=== PATIENT | female | born 1975 | race Caucasian/White ===

== ENCOUNTER 2017-08-19 18:14 | Emergency (ER) | payer BC ==
[2017-08-19] MEDS ORDERED: PROMETHAZINE HCL INJ 25 MG/ML VIAL ONE (18:34)
[2017-08-19] MEDS ORDERED: SODIUM CHLORIDE 0.9% 50ML 50 ML ONE (18:35)
[2017-08-19] MEDS: HYDROcodone 7.5MG/APAP 325MG 1 EA TAB PO ONE (18:40)
[2017-08-19] MEDS: PROMETHAZINE HCL INJ 25 MG in SODIUM CHLORIDE 0.9% 50ML 50 ML IVPB ONE (18:45)
[2017-08-19] MEDS: SODIUM CHLORIDE 0.9% 1000ML 1,000 ML IVS ONE (18:46)
[2017-08-19] MEDS: KETOROLAC TROMETHAMINE INJ 30 MG/ML VIAL IV ONE (18:46)
[2017-08-19 18:51] VITALS: O2SAT 96
--- NOTE | 2017-08-19 19:58 | ED.PDOC ---
History of Present Illness - General Chief Complaint: Headache Stated Complaint: migraine Time Seen by Provider: 08/19/17 18:16 Source: patient Exam Limitations: no limitations - History of Present Illness Initial Comments: The patient is a 42-year-old female presenting to the emergency room secondary to recurrence of a migraine headache that started yesterday. The patient has taken her routine medications at home and been unable to get it knocked out. The symptoms that she is having with this migraine is consistent with her previous migraines. She has had on average 6-7 migraines a year since she was an early teenager. She reports that she has had this worked up with neurology and her primary care doctor in the past. She has been on Imitrex in the past. No new symptoms to this headache. She does have phono and photophobia. She does have facial tingling. She does have changes in taste with her tongue. She does have nausea. All of these symptoms she has had before in the past with her previous migraines. Timing/Duration: 24 hours Severity: severe Improving Factors: nothing Worsening Factors: movement Associated Symptoms: headaches, loss of appetite, malaise, nausea/vomiting, weakness Allergies/Adverse Reactions: Allergies NO KNOWN ALLERGY Allergy (Verified 08/19/17 18:26) Home Medications: Ambulatory Orders Naproxen [Naprosyn] 500 mg PO BID PRN #30 tab 02/18/16 tiZANidine [Zanaflex] 4 mg PO TID PRN #30 tab 02/18/16 Tzdavgyaezson-Dtkq-Dhuukgcwis [Fioricet] 1 ea PO Q8H PRN #21 tab 08/19/17 Review of Systems - Review of Systems Constitutional: States: malaise EENTM: States: see HPI Respiratory: States: no symptoms reported Cardiology: States: no symptoms reported Gastrointestinal/Abdominal: States: see HPI Genitourinary: States: no symptoms reported Musculoskeletal: States: no symptoms reported Skin: States: no symptoms reported Neurological: States: see HPI Endocrine: States: no symptoms reported All other Systems: No Change from Baseline Past Medical History (General) - Patient Medical History Hx Seizures: No Hx Stroke: No Hx Dementia: No Hx Asthma: No Hx of COPD: No Hx Cardiac Disorders: No Hx Congestive Heart Failure: No Hx Pacemaker: No Hx Hypertension: No Hx Thyroid Disease: No Hx Diabetes: No Hx Gastroesophageal Reflux: No Hx Renal Disease: No Hx Cancer: No Hx of HIV: No Hx Hepatitis C: No Hx MRSA: No Surgical History: Hysterectomy - Vaccination History Hx Tetanus, Diphtheria Vaccination: No Hx Influenza Vaccination: No Hx Pneumococcal Vaccination: No - Social History Hx Tobacco Use: Yes Hx Alcohol Use: Yes - occasionally Hx Substance Use: No Hx Substance Use Treatment: No Hx Depression: No Family Medical History - Family History Mother Family History: No Known Physical Exam - Physical Exam General Appearance: Alert, Anxious Eye Exam: bilateral normal - the patient prefers the lights off Ears, Nose, Throat: hearing grossly normal, normal ENT inspection Neck: full range of motion, supple, other - no nuchal rigidity or meningeal signs Respiratory: no respiratory distress, no accessory muscle use Cardiovascular/Chest: normal peripheral pulses, no edema Peripheral Pulses: radial,right: 2+, radial,left: 2+ Gastrointestinal/Abdominal: non tender, soft Rectal Exam: deferred Extremity: normal range of motion, normal inspection, no pedal edema, normal capillary refill 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 The patient has received IV fluids, a dose of promethazine, a dose of hydrocodone, a dose of Valium and a dose of Toradol here. The patient is doing better and will be allowed to go home to sleep it off. She needs to keep herself well-hydrated. She will be written for Fioricet to take at the onset of any future migraine headache. She also needs to take a dose of an anti-inflammatory such as ibuprofen or Motrin or Aleve along with it and drink fluids with caffeine at the onset as well. She needs to follow up with her primary care doctor later this week or early next week. ER warnings were given. Departure - Departure Clinical Impression: Migraine Qualifiers: Migraine type: unspecified Status migrainosus presence: without status migrainosus Intractability: not intractable Qualified Code(s): G43.909 - Migraine, unspecified, not intractable, without status migrainosus Disposition: Discharge to Home or Self Care Condition: Fair Departure Forms: ED Discharge - Pt. Copy, Patient Portal Self Enrollment Diet: regular diet Activity: increase activity as tolerated Prescriptions: Fjkrjxebvftqe-Lwhi-Gxrubzvkmd [Fioricet] 1 ea PO Q8H PRN #21 tab PRN Reason: Pain Home Medications: Ambulatory Orders Naproxen [Naprosyn] 500 mg PO BID PRN #30 tab 02/18/16 tiZANidine [Zanaflex] 4 mg PO TID PRN #30 tab 02/18/16 Ejgpkdtmxzttz-Eehn-Pgxvmbzdyt [Fioricet] 1 ea PO Q8H PRN #21 tab 08/19/17 Additional Instructions: the patient's a 42-year-old female presenting with a migraine headache this been present for more than 24 hours. The patient has received IV fluids, a dose of promethazine, a dose of hydrocodone, a dose of Valium and a dose of Toradol here. The patient is doing better and will be allowed to go home to sleep it off. She needs to keep herself well-hydrated. She will be written for Fioricet to take at the onset of any future migraine headache. She also needs to take a dose of an anti-inflammatory such as ibuprofen or Motrin or Aleve along with it and drink fluids with caffeine at the onset as well. She needs to follow up with her primary care doctor later this week or early next week. ER warnings were given.
[2017-08-19] MEDS: diazePAM 2 MG TAB PO ONE (20:06)
[2017-08-19 20:26] VITALS: BP 134/79; TEMP 97.9
== END 2017-08-19 20:26 | disposition home or self-care (01) ==
LOC: ER 18:14
DX: G43.909 Migraine, unspecified, not intractable, without status migrainosus (principal)
CPT/HCPCS: A4216; J1885; J2550; J7030

== ENCOUNTER → 2017-08-25 | Outpatient (CLI) | payer BC ==
--- NOTE | 2017-08-25 11:10 | MRI ---
EXAM DESCRIPTION: Brain w/wo Contrast: Magnetic Resonance Imaging. CLINICAL HISTORY: HEADACHE COMPARISON: None. TECHNIQUE: Multiplanar, high-field MRI, multiple conventional sequences, without and with gadolinium IV contrast. No adverse reactions. Multiple axial diffusion sequences. FINDINGS: Normal FLAIR and T2-weighted signal in the periventricular white matter and batista-white matter junctions of the cerebral hemispheres. . Normal signal in the bilateral basal ganglia. No hemorrhage, no cerebral edema, no mass-effect. Normal contrast enhancement. Normal signal in the brainstem and cerebellar hemispheres. No hemorrhage, no cerebral edema, no mass-effect. Normal contrast enhancement. Concordance of the diffusion and non-diffusion sequences with no evidence of acute or subacute infarction. Cortical sulci, ventricles, and other CSF spaces, and the subdural spaces are normally configured. No effacement or displacement. No midline shift. No extra-axial hemorrhage. Normal contrast enhancement. Normal flow signal void in the major vessels of the [place], and the venous sinuses. IACs are symmetric bilaterally. Normal signal in the bilateral mastoid air cells. No mass effect in the bilateral Cerebellopontine angles. Normal contrast enhancement. Pituitary gland occupies most of the sella. Normal contrast enhancement. Base of the cerebellar tonsils is at the level of the foramen magnum. Multiple compartments in the paranasal sinuses with mucosal thickening and enhancement. The bony calvarium is intact. IMPRESSION: 1. Normal MRI scan of the brain without and with gadolinium IV contrast. No hemorrhage intra-axial or extra-axial, no mass effect, no cerebral edema. 2. Normal noncontrast MRI diffusion study with no diffusion restriction and no evidence of acute or subacute infarction. 3. Diffuse chronic paranasal sinusitis. Electronically signed by: Franco Cobb MD 08/25/2017 11:07 AM CDT
== END ==
LOC: MRI 08:04
PROVIDERS: ATTEND Nurse Practitioner Family
DX: R51 Headache (principal); J32.9 Chronic sinusitis, unspecified